=== PATIENT | female | born 1980 | race Caucasian/White ===

== ENCOUNTER 2018-05-09 22:16 | Observation (INO) | payer BC ==
[~2018-05-09] VITALS: Ht 154.9 cm; Wt 59.9 kg
[2018-05-09 23:32] LABS: BILIRUBIN,URINE NEGATIVE (NEGATIVE); BLOOD, URINE NEGATIVE (NEGATIVE); CLARITY/URINE SL HAZY (CLEAR); COLOR,URINE YELLOW (YELLOW); GLUCOSE,URINE NEGATIVE (NEGATIVE); KETONES,URINE NEGATIVE (NEGATIVE); LEUKOCYTE ESTERASE ,URINE NEGATIVE (NEGATIVE); NITRITE, URINE NEGATIVE (NEGATIVE); PH,URINE 6.5 (5.0-8.0); PROTEIN URINE NEGATIVE (NEGATIVE); UROBILINOGEN,URINE 0.2 (0.2-1.0)
== END 2018-05-10 00:10 | disposition home or self-care (01) ==
LOC: SPU 22:16 → UNDODISOB 05-10 00:10
PROVIDERS: ADMIT Specialist; ATTEND Specialist
DX: O26.893 Other specified pregnancy related conditions, third trimester (principal); R10.84 Generalized abdominal pain; Z3A.34 34 weeks gestation of pregnancy
CPT/HCPCS: 36415; 81002-TC; 81003; 82731; 87086; G0378

== ENCOUNTER 2018-06-07 05:35 | Inpatient (IN) | payer BC ==
[2018-06-05 12:12] LABS: BILIRUBIN,URINE NEGATIVE (NEGATIVE); BLOOD, URINE NEGATIVE (NEGATIVE); CLARITY/URINE CLEAR (CLEAR); COLOR,URINE YELLOW (YELLOW); GLUCOSE,URINE NEGATIVE (NEGATIVE); KETONES,URINE NEGATIVE (NEGATIVE); LEUKOCYTE ESTERASE ,URINE TRACE (NEGATIVE); NITRITE, URINE NEGATIVE (NEGATIVE); PH,URINE 7.5 (5.0-8.0); PROTEIN URINE NEGATIVE (NEGATIVE); UROBILINOGEN,URINE 0.2 (0.2-1.0)
[2018-06-05 12:42] LABS: HEMOGLOBIN 12.6 g/dL (12.0-16.0)
[2018-06-05 12:48] LABS: HEMATOCRIT 37.5 % (36-48); MEAN CORPUSCULAR HEMOGLOBIN 32 pg (27-31); MEAN CORPUSCULAR HGB CONC 34 % (32-36); MEAN CORPUSCULAR VOLUME 96 fL (79.0-98.0); PLATELET COUNT (AUTO) 231 K/uL (130-430); RED CELL DISTRIBUTION WIDTH 12.6 % (9.0-15.0); WHITE BLOOD COUNT (AUTO) 8.3 K/uL (4.8-10.8)
[2018-06-05 13:29] LABS: BACTERIA,URINE FEW /HPF (None Seen); RBC,URINE 0-3 /HPF (0-3)
[2018-06-05 13:30] LABS: MUCUS,URINE None Seen /LPF (None Seen)
[2018-06-05 14:12] LABS: BAND % (MANUAL) 4 % (0-6); BASOPHILS % (MANUAL) 0 % (0-2); EOSINOPHILS % (MANUAL) 3 % (0-7); LYMPHOCYTES % (MANUAL) 13 % (20-46); MONOCYTES % (MANUAL) 6 % (0-11)
[~2018-06-07] VITALS: Ht 154.9 cm; Wt 62.6 kg
[2018-06-07] MEDS ORDERED: LR 1,000 ML IV ONE (06:11)
[2018-06-07] MEDS ORDERED: CEFAZOLIN 2 GM IVPB PREMIX 50 ML IV ONE (06:15)
[2018-06-07] MEDS ORDERED: CITRIC ACID/SODIUM CITRATE 30 ML UDC PO ONE (06:15)
[2018-06-07] MEDS ORDERED: BUPIVACAINE /DEX PF 0.75% SPINAL 2 ML AMP INJ ONE (07:25)
[2018-06-07] MEDS ORDERED: WATER FOR IRRIGATION,STERILE 1,000 ML IRRIG.SOLN IR ONE (07:25)
[2018-06-07] MEDS ORDERED: LR 1,000 ML IV.SOLN IV ONE (07:25)
[2018-06-07] MEDS ORDERED: MORPHINE SULFATE 10MG/10ML PF AMP EP ONE (07:25)
[2018-06-07] MEDS ORDERED: ePHEDrine sulfate 50 MG/ML VIAL IVP ONE (07:25)
[2018-06-07] MEDS ORDERED: fentaNYL CITRATE/PF 100 MCG/2 ML AMP IVP PRN ×2 (08:30)
[2018-06-07] MEDS ORDERED: KETOROLAC TROMETHAMINE 30 MG VIAL IVP PRN (08:30)
[2018-06-07] MEDS ORDERED: ONDANSETRON HCL 4 MG/2 ML VIAL IVP PRN ×2 (08:30)
[2018-06-07] MEDS ORDERED: DIPHENHYDRAMINE INJ 50 MG/ML VIAL IVP PRN (08:30)
[2018-06-07] MEDS ORDERED: KETOROLAC TROMETHAMINE 60 MG/2 ML VIAL IM PRN (08:30)
[2018-06-07] MEDS ORDERED: MORPHINE SULFATE 10MG/10ML PF AMP SP SCH (08:30)
[2018-06-07] MEDS ORDERED: NALOXONE HCL 0.4 MG/ML AMP (NARCAN) IVP PRN ×2 (08:30)
[2018-06-07] MEDS ORDERED: NALBUPHINE HCL 10 MG/ML AMP IVP PRN (08:30)
[2018-06-07 08:40] VITALS: BP_SYST 123
[2018-06-07] MEDS ORDERED: LR 1,000 ML IV SCH (08:44)
[2018-06-07] MEDS ORDERED: SIMETHICONE 80 MG TAB.CHEW PO PRN (08:45)
[2018-06-07] MEDS ORDERED: DOCUSATE SODIUM 100 MG CAPSULE PO PRN (08:45)
[2018-06-07] MEDS ORDERED: SENNOSIDES/DOCUSATE SODIUM 1 TAB TABLET(SENOKOT-S) PO PRN (08:45)
[2018-06-07] MEDS ORDERED: LANOLIN 7 GM OINT. TP PRN (08:45)
[2018-06-07] MEDS ORDERED: BISACODYL 10 MG/SUPPOSITORY RC PRN (08:45)
[2018-06-07] MEDS ORDERED: RHO(D) IMMUNE GLOBULIN/MALTOSE 1500 UNITS/1.3 ML (WINHRO) IM PRN (08:45)
[2018-06-07] MEDS ORDERED: OXYTOCIN/0.9 % SODIUM CHLORIDE 1,000 ML IV ONE (08:49)
[2018-06-07] MEDS: CEFAZOLIN 1 GM IVPB PREMIX 50 ML IV SCH ×3 (12:50→23:54)
[2018-06-07] MEDS: OXYTOCIN/0.9 % SODIUM CHLORIDE 1,000 ML IV SCH (17:09)
[2018-06-07] MEDS: KETOROLAC TROMETHAMINE 30 MG VIAL IVP SCH ×2 (17:56→23:55)
[2018-06-07] MEDS ORDERED: TEMAZEPAM 15 MG CAPSULE PO PRN (21:00)
[2018-06-08] MEDS: OXYTOCIN/0.9 % SODIUM CHLORIDE 1,000 ML IV SCH ×2 (03:05→09:30)
[2018-06-08] MEDS: KETOROLAC TROMETHAMINE 30 MG VIAL IVP SCH ×2 (06:06→12:28)
[2018-06-08 07:01] LABS: BASOPHILS % (AUTO) 0.2 % (0.0-2.0); EOSINOPHILS # (AUTO) 0.1 K/uL (0.0-0.4); HEMOGLOBIN 9.7 g/dL (12.0-16.0); LYMPHOCYTES # (AUTO) 1.5 K/uL (1.0-5.5); LYMPHOCYTES % (AUTO) 16.5 % (20.5-51.5); MEAN CORPUSCULAR HEMOGLOBIN 31 pg (27-31); MEAN CORPUSCULAR HGB CONC 33 % (32-36); MEAN CORPUSCULAR VOLUME 94 fL (79.0-98.0); MONOCYTES # (AUTO) 0.6 K/uL (0.0-1.0); MONOCYTES % (AUTO) 6.8 % (1.7-9.3); NEUTROPHILS # (AUTO) 6.6 K/uL (1.8-7.7); NEUTROPHILS % (AUTO) 75.5 % (40.0-70.0); PLATELET COUNT (AUTO) 170 K/uL (130-430); RED BLOOD CELL COUNT(AUTO) 3.08 MIL/uL (4.2-6.2); RED CELL DISTRIBUTION WIDTH 12.8 % (9.0-15.0); WHITE BLOOD COUNT (AUTO) 8.8 K/uL (4.8-10.8)
[2018-06-08] MEDS: IBUPROFEN 600 MG TABLET PO SCH (18:10)
[2018-06-09] MEDS: IBUPROFEN 600 MG TABLET PO SCH ×3 (00:06→11:50)
== END 2018-06-09 14:31 | disposition home or self-care (01) | DRG 766 ==
LOC: SPU 05:35 → UNDOADMIN 05:35 → SMU 17:25 → SPU 17:26 → SMU 17:26 → SPU 23:23
PROVIDERS: ADMIT Specialist; ATTEND Specialist
PROC: 10D00Z1 Extraction of Products of Conception, Low, Open Approach (ICD-10-PCS; principal; 2018-06-07 07:30)
DX: O34.211 Maternal care for low transverse scar from previous cesarean delivery (principal); Z37.0 Single live birth; Z3A.38 38 weeks gestation of pregnancy; Z88.8 Allergy status to other drugs, medicaments and biological substances; O09.523 Supervision of elderly multigravida, third trimester
CPT/HCPCS: 36415; 81000-TC; 85007; 85025; 85027; 86592; 86886; 86900; 86901; 94760; J0690; J1885; J2274; J2405; J2590; J3490; J7120

== ENCOUNTER 2020-09-29 10:13 | Emergency (ER) | payer BC, SELFPAY ==
[~2020-09-29] VITALS: Ht 154.9 cm; Wt 64.9 kg
[2020-09-29 10:13] VITALS: BP_SYST 119
--- NOTE | 2020-09-29 10:13 | NUR ---
BROUGHT BACK TO BED #6 AND TRIAGED. REPORT GIVEN TO CHRIS
--- NOTE | 2020-09-29 10:33 | NUR ---
ER at bedside examining patient.
--- NOTE | 2020-09-29 10:50 | NUR ---
Patient transported to radiology via ambulatory, accompanied by trade analyst.
--- NOTE | 2020-09-29 11:05 | NUR ---
patient came back from radiology.
--- NOTE | 2020-09-29 11:17 | NUR ---
covid swab collected and sent to lab.
[2020-09-29 12:00] VITALS: BP_SYST 119
--- NOTE | 2020-09-29 12:02 | NUR ---
Patient given written and verbal discharge instructions and verbalizes understanding. ER MD discussed with patient the results and treatment provided. Patient in stable condition. ID arm band removed. Patient educated on pain management and to follow up with PMD. Pain Scale 0. Opportunity for questions provided and answered. Medication side effect fact sheet provided.
== END 2020-09-29 12:02 | disposition home or self-care (01) ==
LOC: SED 10:13
DX: S10.11XA Abrasion of throat, initial encounter (principal); Z88.5 Allergy status to narcotic agent; Z20.828 Contact with and (suspected) exposure to other viral communicable diseases; X58.XXXA Exposure to other specified factors, initial encounter; Y93.89 Activity, other specified; Y92.89 Other specified places as the place of occurrence of the external cause; Y99.8 Other external cause status
CPT/HCPCS: 36415; 70490; 99284

== ENCOUNTER 2022-02-18 17:31 | Observation (INO) | payer BC ==
[~2022-02-18] VITALS: Ht 154.9 cm; Wt 70.3 kg
[2022-02-18 18:38] LABS: BILIRUBIN,URINE NEGATIVE (NEGATIVE); BLOOD, URINE 2+ (NEGATIVE); CLARITY/URINE CLEAR (CLEAR); COLOR,URINE YELLOW (YELLOW); GLUCOSE,URINE NEGATIVE (NEGATIVE); KETONES,URINE 3+ (NEGATIVE); LEUKOCYTE ESTERASE ,URINE NEGATIVE (NEGATIVE); NITRITE, URINE NEGATIVE (NEGATIVE); PH,URINE 6.5 (5.0-8.0); PROTEIN URINE NEGATIVE (NEGATIVE); UROBILINOGEN,URINE 0.2 (0.2-1.0)
[2022-02-18 18:46] LABS: BACTERIA,URINE FEW /HPF (None Seen); MUCUS,URINE None Seen /LPF (None Seen); RBC,URINE 0-3 /HPF (0-3); WBC,URINE 0-3 /HPF (0-3)
[2022-02-18] MEDS ORDERED: NITROFURANTOIN MONOHYD/M-CRYST 100 MG CAPSULE (MacroBID) PO ONE ×3 (19:15→19:30)
== END 2022-02-18 19:45 | disposition home or self-care (01) ==
LOC: SPU 17:31 → MERGE 17:31
PROVIDERS: ADMIT Specialist; ATTEND Specialist
DX: O62.9 Abnormality of forces of labor, unspecified (principal); Z3A.33 33 weeks gestation of pregnancy
CPT/HCPCS: 59025; 81000; 81002; G0378

== ENCOUNTER 2022-03-09 23:28 | Emergency (ER) | payer BC ==
[~2022-03-09] VITALS: Ht 154.9 cm; Wt 70.8 kg
[2022-03-09 23:30] VITALS: BP_SYST 114
--- NOTE | 2022-03-10 04:17 | NUR ---
PT NOT IN LOBBY. CALLED TWICE. LWBS
== END 2022-03-10 04:17 | disposition left against medical advice (07) ==
LOC: SED 23:28
DX: R07.89 Other chest pain (principal); Z53.21 Procedure and treatment not carried out due to patient leaving prior to being seen by health care provider

== ENCOUNTER 2022-03-21 05:35 | Inpatient (IN) | payer BC ==
[2022-03-19 09:30] LABS: BILIRUBIN,URINE NEGATIVE (NEGATIVE); COLOR,URINE YELLOW (YELLOW); GLUCOSE,URINE NEGATIVE (NEGATIVE); KETONES,URINE NEGATIVE (NEGATIVE); LEUKOCYTE ESTERASE ,URINE 2+ (NEGATIVE); NITRITE, URINE NEGATIVE (NEGATIVE); PROTEIN URINE NEGATIVE (NEGATIVE); UROBILINOGEN,URINE 0.2 (0.2-1.0)
[2022-03-19 09:39] LABS: BASOPHILS % (AUTO) 0.5 % (0.0-2.0); EOSINOPHILS # (AUTO) 0.1 K/uL (0.0-0.4); EOSINOPHILS % (AUTO) 1.7 % (0.0-4.0); HEMATOCRIT 34.9 % (36-48); HEMOGLOBIN 11.3 g/dL (12.0-16.0); LYMPHOCYTES # (AUTO) 1.7 K/uL (1.0-5.5); LYMPHOCYTES % (AUTO) 19.5 % (20.5-51.5); MEAN CORPUSCULAR HEMOGLOBIN 28 pg (27-31); MEAN CORPUSCULAR HGB CONC 33 % (32-36); MEAN CORPUSCULAR VOLUME 87 fL (79.0-98.0); MONOCYTES # (AUTO) 0.6 K/uL (0.0-1.0); MONOCYTES % (AUTO) 7.2 % (1.7-9.3); NEUTROPHILS # (AUTO) 6.2 K/uL (1.8-7.7); NEUTROPHILS % (AUTO) 71.1 % (40.0-70.0); PLATELET COUNT (AUTO) 255 K/uL (130-430); RED BLOOD CELL COUNT(AUTO) 4.02 MIL/uL (4.2-6.2); RED CELL DISTRIBUTION WIDTH 14.1 % (9.0-15.0); WHITE BLOOD COUNT (AUTO) 8.6 K/uL (4.8-10.8)
[2022-03-19 09:56] LABS: BLOOD, URINE TRACE (NEGATIVE); CLARITY/URINE HAZY (CLEAR)
[2022-03-19 10:01] LABS: BACTERIA,URINE MANY /HPF (None Seen); MUCUS,URINE 1+ /LPF (None Seen)
[~2022-03-21] VITALS: Ht 154.9 cm; Wt 70.3 kg
[2022-03-21] MEDS: CEFAZOLIN 1 GM IVPB PREMIX 50 ML IV SCH ×2 (00:27→17:24)
[2022-03-21] MEDS ORDERED: LR 1,000 ML IV SCH ×3 (06:15→09:00)
[2022-03-21] MEDS ORDERED: CEFAZOLIN 2 GM IVPB PREMIX 50 ML IV ONE (06:15)
[2022-03-21 06:25] VITALS: BP_SYST 114
[2022-03-21] MEDS ORDERED: NS IRRIG SOLN 1000 ML IR ONE (07:45)
[2022-03-21] MEDS ORDERED: MORPHINE SULFATE 10 MG/ML VIAL IVP ONE (07:45)
[2022-03-21] MEDS ORDERED: METOCLOPRAMIDE HCL 10 MG/2 ML VIAL IVP ONE (07:45)
[2022-03-21] MEDS ORDERED: LR 1,000 ML IV.SOLN IV ONE (07:45)
[2022-03-21] MEDS ORDERED: HYDROmorphone 1 MG/ML INJ. CARTRIDGE IVP PRN (08:30)
[2022-03-21] MEDS ORDERED: METOCLOPRAMIDE HCL 10 MG/2 ML VIAL IVP PRN (08:30)
[2022-03-21] MEDS ORDERED: ONDANSETRON HCL 4 MG/2 ML VIAL IVP PRN ×2 (08:30)
[2022-03-21] MEDS ORDERED: DIPHENHYDRAMINE INJ 50 MG/ML VIAL IM PRN (08:30)
[2022-03-21] MEDS ORDERED: MEPERIDINE HCL/PF 25 MG/ML DISP.SYRIN IVP PRN (08:30)
[2022-03-21] MEDS ORDERED: KETOROLAC TROMETHAMINE 60 MG/2 ML VIAL IM PRN (08:30)
[2022-03-21] MEDS ORDERED: KETOROLAC TROMETHAMINE 30 MG VIAL IVP PRN (08:30)
[2022-03-21] MEDS ORDERED: NALOXONE HCL 0.4 MG/ML AMP (NARCAN) IVP PRN ×2 (08:30→09:00)
[2022-03-21] MEDS ORDERED: MORPHINE SULFATE 10MG/10ML PF AMP SP PRN (08:30)
[2022-03-21 08:46] VITALS: BP_SYST 14
[2022-03-21] MEDS ORDERED: MEASLES,MUMPS&RUBELLA VACC/PF 12500 UNIT/0.5 ML VIAL SUBQ PRN (09:00)
[2022-03-21] MEDS ORDERED: IBUPROFEN 600 MG TABLET PO PRN (09:00)
[2022-03-21] MEDS ORDERED: RHO(D) IMMUNE GLOBULIN/MALTOSE 1500 UNITS/1.3 ML (WINHRO) IM PRN (09:00)
[2022-03-21] MEDS ORDERED: ANUSOL 1 EA SUPP.RECT (PREPARATION H) RC PRN (09:00)
[2022-03-21] MEDS ORDERED: TEMAZEPAM 15 MG CAPSULE PO PRN (09:00)
[2022-03-21] MEDS ORDERED: DIPH-TET-PERTUS Vaccine 0.5 ML VIAL (ADACEL) I.M. PRN (09:00)
[2022-03-21] MEDS ORDERED: LANOLIN 7 GM OINT. TP PRN (09:00)
[2022-03-21] MEDS: OXYTOCIN/0.9 % SODIUM CHLORIDE 1,000 ML IV SCH ×2 (13:23→22:25)
[2022-03-21] MEDS: KETOROLAC TROMETHAMINE 30 MG VIAL IVP SCH (17:59)
[2022-03-21] MEDS: SENNOSIDES/DOCUSATE SODIUM 1 TAB TABLET(SENOKOT-S) PO SCH (20:26)
[2022-03-21] MEDS: DOCUSATE SODIUM 100 MG CAPSULE PO SCH (20:26)
[2022-03-22] MEDS: KETOROLAC TROMETHAMINE 30 MG VIAL IVP SCH ×4 (00:27→13:04)
[2022-03-22] MEDS: CEFAZOLIN 1 GM IVPB PREMIX 50 ML IV SCH (06:26)
[2022-03-22 07:04] LABS: BASOPHILS % (AUTO) 0.3 % (0.0-2.0); EOSINOPHILS # (AUTO) 0.1 K/uL (0.0-0.4); EOSINOPHILS % (AUTO) 1.5 % (0.0-4.0); HEMATOCRIT 26.1 % (36-48); HEMOGLOBIN 8.7 g/dL (12.0-16.0); LYMPHOCYTES # (AUTO) 1.3 K/uL (1.0-5.5); LYMPHOCYTES % (AUTO) 15.6 % (20.5-51.5); MEAN CORPUSCULAR HEMOGLOBIN 29 pg (27-31); MEAN CORPUSCULAR HGB CONC 33 % (32-36); MEAN CORPUSCULAR VOLUME 87 fL (79.0-98.0); MONOCYTES # (AUTO) 0.6 K/uL (0.0-1.0); MONOCYTES % (AUTO) 7.7 % (1.7-9.3); NEUTROPHILS # (AUTO) 6.2 K/uL (1.8-7.7); NEUTROPHILS % (AUTO) 74.9 % (40.0-70.0); PLATELET COUNT (AUTO) 183 K/uL (130-430); RED BLOOD CELL COUNT(AUTO) 2.99 MIL/uL (4.2-6.2); RED CELL DISTRIBUTION WIDTH 14.3 % (9.0-15.0); WHITE BLOOD COUNT (AUTO) 8.2 K/uL (4.8-10.8)
[2022-03-22] MEDS ORDERED: BISACODYL 10 MG/SUPPOSITORY RC PRN (09:00)
[2022-03-22] MEDS: SIMETHICONE 80 MG TAB.CHEW PO PRN (10:27)
[2022-03-22] MEDS: DOCUSATE SODIUM 100 MG CAPSULE PO SCH ×2 (10:29→21:35)
[2022-03-22] MEDS: IBUPROFEN 800 MG TABLET PO PRN (15:55)
[2022-03-22] MEDS ORDERED: KETOROLAC TROMETHAMINE 30 MG VIAL IM ONE (19:45)
[2022-03-22] MEDS: SENNOSIDES/DOCUSATE SODIUM 1 TAB TABLET(SENOKOT-S) PO SCH (21:34)
[2022-03-23] MEDS: IBUPROFEN 800 MG TABLET PO PRN ×4 (00:29→18:58)
[2022-03-23] MEDS: SIMETHICONE 80 MG TAB.CHEW PO PRN ×2 (14:00→18:58)
[2022-03-23] MEDS: SENNOSIDES/DOCUSATE SODIUM 1 TAB TABLET(SENOKOT-S) PO SCH (18:58)
[2022-03-23] MEDS: DOCUSATE SODIUM 100 MG CAPSULE PO SCH (18:58)
== END 2022-03-23 19:43 | disposition home or self-care (01) | DRG 787 ==
LOC: SPU 05:35
PROVIDERS: ADMIT Specialist; ATTEND Specialist
PROC: 10D00Z1 Extraction of Products of Conception, Low, Open Approach (ICD-10-PCS; principal; 2022-03-21 07:53)
DX: O34.211 Maternal care for low transverse scar from previous cesarean delivery (principal); D62 Acute posthemorrhagic anemia; Z20.822 Contact with and (suspected) exposure to COVID-19; O24.429 Gestational diabetes mellitus in childbirth, unspecified control; O99.52 Diseases of the respiratory system complicating childbirth; J45.909 Unspecified asthma, uncomplicated; Z37.0 Single live birth; Z3A.38 38 weeks gestation of pregnancy
CPT/HCPCS: 36415; 81000; 82962; 85025; 86886; 86900; 86901; 87635-QW; 94760; J0690; J1885; J2270; J2405; J2590; J2765; J7120; U0003

== ENCOUNTER 2022-11-26 00:07 | Emergency (ER) | payer BC ==
[~2022-11-26] VITALS: Ht 152.4 cm; Wt 64.0 kg
[2022-11-26 00:15] VITALS: BP_SYST 136
[2022-11-26] MEDS ORDERED: predniSONE 20 MG TABLET PO ONE (00:15)
[2022-11-26] MEDS ORDERED: IPRATROPIUM/ALBUTEROL SULFATE 3 ML AMPUL.NEB (DUONEB) INH ONE (00:15)
--- NOTE | 2022-11-26 00:17 | NUR ---
Placed in room 5 . Placed on monitoring engineer, blood pressure machine and pulse oximeter. To gown for exam. Side rails up. Report given to SUSHANT SIMEON(REG).
--- NOTE | 2022-11-26 00:19 | NUR ---
ER at bedside examining patient.
[2022-11-26] MEDS ORDERED: DIPHENHYDRAMINE INJ 50 MG/ML VIAL IVP ONE (01:00)
[2022-11-26] MEDS ORDERED: METHYLPREDNISOLONE SOD SUCC 40 MG/ML VIAL IVP ONE (01:00)
[2022-11-26] MEDS ORDERED: FAMOTIDINE PF 20 MG/2 ML VIAL IVP ONE (01:00)
[2022-11-26] MEDS ORDERED: NACL 0.9% 1,000 ML IV ONE (01:30)
[2022-11-26] MEDS ORDERED: ALBMDI INH (02:04)
[2022-11-26] MEDS ORDERED: PRED20TA PO (02:04)
[2022-11-26] MEDS ORDERED: GUAI-787 PO (02:28)
[2022-11-26] MEDS ORDERED: [UNRECOGNIZED DRUG - CODE] PO (02:28)
[2022-11-26 02:50] VITALS: BP_SYST 108
--- NOTE | 2022-11-26 02:55 | NUR ---
Patient given written and verbal discharge instructions and verbalizes understanding. ER MD discussed with patient the results and treatment provided. Patient in stable condition. ID arm band removed. IV catheter removed intact and dressing applied, no active bleeding. Rx of guaifenesin (adult tussin), loratadine/pseudoephedrine, prednisone, albuterol MDI given. Patient educated on pain management and to follow up with PMD. Opportunity for questions provided and answered.
== END 2022-11-26 02:55 | disposition home or self-care (01) ==
LOC: SED 00:07
DX: J45.901 Unspecified asthma with (acute) exacerbation (principal); F41.9 Anxiety disorder, unspecified; I10 Essential (primary) hypertension; R06.02 Shortness of breath; R05.9 Cough, unspecified; R09.81 Nasal congestion; Z88.5 Allergy status to narcotic agent; Z79.899 Other long term (current) drug therapy
CPT/HCPCS: 94640; 99284; 96374; 71045; 96375; 96361; J1200; J3490; J7030; J1030; J7512

== ENCOUNTER 2022-12-03 14:07 | Emergency (ER) | payer BC ==
[~2022-12-03] VITALS: Ht 154.9 cm; Wt 63.5 kg
[~2022-12-03 14:07] MED LIST: ALBMDI INH; GUAI-787 PO; PRED20TA PO; [UNRECOGNIZED DRUG - CODE] PO
[2022-12-03 14:15] VITALS: BP_SYST 100
[2022-12-03] MEDS ORDERED: KETOROLAC TROMETHAMINE 30 MG VIAL IM ONE (14:30)
[2022-12-03 16:10] LABS: BASOPHILS % (AUTO) 0.2 % (0.0-2.0); EOSINOPHILS # (AUTO) 0.2 K/uL (0.0-0.4); EOSINOPHILS % (AUTO) 1.8 % (0.0-4.0); HEMATOCRIT 37.2 % (36-48); HEMOGLOBIN 11.9 g/dL (12.0-16.0); LYMPHOCYTES # (AUTO) 1.6 K/uL (1.0-5.5); LYMPHOCYTES % (AUTO) 14.1 % (20.5-51.5); MEAN CORPUSCULAR HEMOGLOBIN 27 pg (27-31); MEAN CORPUSCULAR HGB CONC 32 % (32-36); MEAN CORPUSCULAR VOLUME 84 fL (79.0-98.0); MONOCYTES # (AUTO) 0.8 K/uL (0.0-1.0); MONOCYTES % (AUTO) 7.3 % (1.7-9.3); NEUTROPHILS # (AUTO) 8.5 K/uL (1.8-7.7); NEUTROPHILS % (AUTO) 76.6 % (40.0-70.0); PLATELET COUNT (AUTO) 333 K/uL (130-430); RED BLOOD CELL COUNT(AUTO) 4.45 MIL/uL (4.2-6.2); RED CELL DISTRIBUTION WIDTH 15.5 % (9.0-15.0); WHITE BLOOD COUNT (AUTO) 11.1 K/uL (4.8-10.8)
[2022-12-03 16:22] LABS: CALCIUM 8.6 mg/dL (8.4-11.0); CREATININE 0.68 mg/dL (0.55-1.30)
[2022-12-03 16:27] LABS: ALBUMIN 3.6 g/dL (3.4-4.8); TOTAL BILIRUBIN 0.5 mg/dL (0.0-1.0)
[2022-12-03 16:51] VITALS: BP_SYST 112
[2022-12-03] MEDS ORDERED: IBUP-1971 PO (17:00)
[2022-12-03] MEDS ORDERED: DICL20GE TP (17:00)
== END 2022-12-03 18:00 | disposition home or self-care (01) ==
LOC: SED 14:07
DX: S93.401A Sprain of unspecified ligament of right ankle, initial encounter (principal); S50.01XA Contusion of right elbow, initial encounter; R55 Syncope and collapse; J45.909 Unspecified asthma, uncomplicated; Z88.5 Allergy status to narcotic agent; Z79.899 Other long term (current) drug therapy; W54.1XXA Struck by dog, initial encounter; Y93.89 Activity, other specified; Y92.89 Other specified places as the place of occurrence of the external cause; Y99.8 Other external cause status
CPT/HCPCS: 99285; 80053; 82962; 85025; 36415; 93005; 73080; 73564; 73610; 96372; J1885

== ENCOUNTER 2022-12-15 23:14 | Emergency (ER) | payer BC ==
[~2022-12-15] VITALS: Ht 154.9 cm; Wt 63.5 kg
[~2022-12-15 23:14] MED LIST changes: +DICL20GE TP; +IBUP-1971 PO
[2022-12-15 23:19] VITALS: BP_SYST 110
--- NOTE | 2022-12-15 23:49 | NUR ---
Placed in room 5 . Placed on site monitor, blood pressure machine and pulse oximeter. To gown for exam. Side rails up. Report given to CAILIN WORKMAN.
--- NOTE | 2022-12-15 23:50 | NUR ---
ER Dr. Magallanes at bedside examining patient.
[2022-12-16] MEDS ORDERED: RACEPINEPHRINE HCL 0.5 ML VIAL.NEB INH ONE
[2022-12-16] MEDS ORDERED: MAG HYDROX/AL HYDROX/SIMETH 30 ML, DICYCLOMINE HCL 20 MG, LIDOCAINE VISCOUS 2% 15ML (PO... PO ONE ×3
[2022-12-16] MEDS ORDERED: predniSONE 20 MG TABLET PO ONE
[2022-12-16] MEDS ORDERED: BENZ1LOZ73 PO (00:59)
[2022-12-16] MEDS ORDERED: LORA-259 PO (00:59)
--- NOTE | 2022-12-16 01:06 | NUR ---
PT IS AA&OX4. AFEBRILE. NAD. DENIES PAIN. VERBALIZED ANXIETY WHEN TAKING PREDNISONE & LIDOCAINE. AMBULATORY W/ STEADY GAIT. SAFE & HAZARD FREE ENVIRONMENT PROVIDED, MEDICATED ORDERED. AT BEDSIDE.
[2022-12-16 01:11] VITALS: BP_SYST 125
--- NOTE | 2022-12-16 01:14 | NUR ---
Patient given written and verbal discharge instructions and verbalizes understanding. ER MD Dr. Magallanes discussed with patient the results and treatment provided. Patient in stable condition. ID arm band removed. Rx given. Patient educated on pain management and to follow up with PMD. Pain Scale 0. Opportunity for questions provided and answered. Medication side effect fact sheet provided. Pt left via w/c.
== END 2022-12-16 01:11 | disposition home or self-care (01) ==
LOC: SED 23:14
DX: J04.10 Acute tracheitis without obstruction (principal); R06.00 Dyspnea, unspecified; R06.02 Shortness of breath; J45.909 Unspecified asthma, uncomplicated; K21.9 Gastro-esophageal reflux disease without esophagitis; Z88.5 Allergy status to narcotic agent; Z79.899 Other long term (current) drug therapy
CPT/HCPCS: 99283; 94640; 70360; J7512; J2001